=== PATIENT | female | born 1960 | race Caucasian/White ===

== ENCOUNTER 2017-10-16 10:13 | Emergency (ER) | payer OTHER ==
[2017-10-16 10:24] VITALS: BP 143/87
--- NOTE | 2017-10-16 10:44 | UC ---
Hand/Wrist HPI - HPI Summary HPI Summary: Pt presents with left hand pain following a fall 4 days ago. She was at a conference in [facility] and tripped over an uneven sidewalk - she fell onto the dorsal aspect of her left hand and scrapped her face on the ground. She had a small laceration on her bottom lip and immediate pain in her lip and left hand. She got back up and continued with her day. Over the next few days her lip healed, but her left hand is still painful and bruised. Today complains of decreased ROM, bruising, and pain of left hand. Has not taken anything OTC. Has been icing. No previous injury to this UE - History Of Current Complaint Chief Complaint: UCUpperExtremity Stated Complaint: HAND INJURY Time Seen by Provider: 10/16/17 10:40 Hx Obtained From: Patient Onset/Duration: Sudden Onset Severity Initially: Mild Severity Currently: Mild Pain Intensity: 1 Pain Scale Used: 0-10 Numeric Character Of Pain: Dull, Aching, Stiffness Aggravating Factor(s): Lifting, Flexion Alleviating Factor(s): Rest, Ice Associated Signs And Symptoms: Positive: Bruising - Allergies/Home Medications Allergies/Adverse Reactions: Allergies Allergy/AdvReac Type Severity Reaction Status Date / Time No Known Allergies Allergy Verified 10/16/17 10:24 PMH/Surg Hx/FS Hx/Imm Hx Previously Healthy: Yes - Surgical History Surgical History: Yes Surgery Procedure, Year, and Place: 2011 right carpal tunnel release, [facility] - Social History Occupation: Employed Full-time Lives: With Family Alcohol Use: Occasionally Substance Use Type: None Smoking Status (MU): Never Smoked Tobacco Review of Systems Constitutional: Negative Skin: Bruising - Left hand ENT: Negative Respiratory: Negative Cardiovascular: Negative Gastrointestinal: Negative Neurovascular: Negative Musculoskeletal: Decreased ROM - Left hand, Edema - Left hand Neurological: Negative Psychological: Negative All Other Systems Reviewed And Are Negative: Yes Physical Exam Triage Information Reviewed: Yes Appearance: Well-Appearing, Well-Nourished Vital Signs: Initial Vital Signs Temp 97.9 F 10/16/17 10:20 Pulse 69 10/16/17 10:20 Resp 18 10/16/17 10:20 BP 143/87 10/16/17 10:20 Pulse Ox 98 10/16/17 10:20 Vital Signs Reviewed: Yes Musculoskeletal: Positive: Strength Limited @ - 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 Neurological: Positive: Alert, Other: - Sensations intact left hand and digits. Psychological: Positive: Age Appropriate Behavior Skin: Positive: Other - Ecchymosis over left 2-4 MCs.. Negative: rashes Hand/Wrist Course/Dx - Course Course Of Treatment: XR today : NO ACUTE OSSEOUS INJURY. FLACO wrap for comfort. Pt denied needing anything stronger than ibuprofen for pain control. - Differential Dx/Diagnosis Differential Diagnosis/HQI/PQRI: Contusion, Dislocation, Fracture, Sprain, Strain Provider Diagnoses: Left hand contusion Discharge - Discharge Plan Condition: Stable Disposition: HOME Patient Education Materials: Contusion in Adults (ED) Referrals: No Primary Care Phys,NOPCP [Medical Doctor] - Marlene Damon MD [Medical Doctor] - If Needed Additional Instructions: 1) FLACO wrap for comfort 2) Ibuprofen 400mg every 6 hours as needed for pain 3) Rest and Ice your hand If you develop a fever, SOB, chest pain, new or worsening symptoms - please call your PCP or go to the ED. Your blood pressure was high at todays visit. Please see your primary provider within 4 weeks for recheck and re-evaluation. If your symptoms worsen or persist after 1 week - please follow up with Dr. Damon at the number below.
--- NOTE | 2017-10-16 11:13 | RAD ---
HISTORY: Left hand pain COMPARISONS: None VIEWS: 4, Frontal, lateral, and oblique views of the left hand FINDINGS: BONE DENSITY: Normal. BONES: There is no displaced fracture. JOINTS: There is no arthropathy. ALIGNMENT: There is no dislocation. SOFT TISSUES: Unremarkable. OTHER FINDINGS: None. IMPRESSION: NO ACUTE OSSEOUS INJURY. IF SYMPTOMS PERSIST, RECOMMEND REPEAT IMAGING.
== END 2017-10-16 11:31 | disposition home or self-care (01) ==
LOC: UCEAST 10:13
DX: S60.222A Contusion of left hand, initial encounter (principal); W01.0XXA Fall on same level from slipping, tripping and stumbling without subsequent striking against object, initial encounter; Y93.01 Activity, walking, marching and hiking; Y92.480 Sidewalk as the place of occurrence of the external cause; Y99.9 Unspecified external cause status
CPT/HCPCS: 99212; G0463